=== PATIENT | male | born 1980 | race Caucasian/White ===

== ENCOUNTER → 2016-08-18 | Outpatient (CLI) | payer OTHER ==
[~2016-08-18] MED LIST: BAYEMIS; BAYETES; GABA300C5 PO; GLIP5TAB8 PO; IBUP800T23 PO; LIPI80TA PO; LISI-519 PO; METF500T PO; METH750T PO
[2016-08-18 13:07] LABS: AUTOMATED NEUTROPHIL # 6.1 TH/MM3 (1.8-7.7); BASOPHIL % 0.5 % (0.0-2.0); EOSINOPHIL # 0.1 TH/MM3 (0-0.4); EOSINOPHIL % 1.3 % (0.0-4.0); HEMATOCRIT 41.2 % (39.0-51.0); HEMO FLAGS DIFF FINAL; LYMPHOCYTE # 1.4 TH/MM3 (1.0-4.8); MEAN CELL VOLUME 89.2 FL (80.0-100.0); MEAN CORPUSCULAR HGB CONC 33.7 % (32.0-36.0); MONO % 4.7 % (0.0-8.0); NEUT % 75.5 % (16.0-70.0); PLATELET COUNT 160 TH/MM3 (150-450); RED BLOOD COUNT 4.61 MIL/MM3 (4.50-5.90); RED CELL DISTRIBUTION WIDTH 13.1 % (11.6-17.2)
[2016-08-18 13:35] LABS: ANION GAP 3 MEQ/L (5-15); BICARBONATE 31.6 MEQ/L (21.0-32.0); BLOOD UREA NITROGEN 6 MG/DL (7-18); CHLORIDE 106 MEQ/L (98-107); GLUCOSE,FASTING 149 MG/DL (74-99); POTASSIUM 4.3 MEQ/L (3.5-5.1); SODIUM (NA) 141 MEQ/L (136-145)
[2016-08-18 13:48] LABS: ALKALINE PHOSPHATASE 154 U/L (45-117); ALT (GPT) 32 U/L (12-78); AST (GOT) 21 U/L (15-37); GLOMERULAR FILTRATION RATE 86 ML/MIN (>89); HDL CHOLESTEROL 26.7 MG/DL (40.0-60.0); LDL CHOLESTEROL 37 MG/DL (0-99); TOTAL BILIRUBIN ADULT 0.7 MG/DL (0.2-1.0)
[2016-08-18 17:37] LABS: HEMOGLOBIN A1a 0.9 %; HEMOGLOBIN Ao 81.2 %; HEMOGLOBIN F 1.2 %; HEMOGLOBIN LA1C 2.3 %
== END ==
LOC: CLAB 12:35
PROVIDERS: ATTEND Family Medicine
DX: E78.5 Hyperlipidemia, unspecified (principal); R73.02 Impaired glucose tolerance (oral); I10 Essential (primary) hypertension; Z91.19 Patient's noncompliance with other medical treatment and regimen
CPT/HCPCS: 36415; 80053; 80061; 83036; 84443; 85025

== ENCOUNTER 2016-09-16 14:48 | Emergency (ER) | payer OTHER ==
[~2016-09-16] VITALS: Ht 185.4 cm; Wt 178.0 kg
[2016-09-16 14:52] VITALS: BP 143/94; PULSE 106; RESP 16; TEMP 98.8; O2SAT 95
[2016-09-16] MEDS ORDERED: RANI150T PO (15:13)
[2016-09-16] MEDS ORDERED: BENA25CA4 PO (15:13)
[2016-09-16] MEDS ORDERED: RANITIDINE HCL SYRUP 150 MG/10 ML UDC PO ONE (15:15)
[2016-09-16] MEDS ORDERED: predniSONE 20 MG TAB PO ONE (15:15)
[2016-09-16] MEDS ORDERED: diphenhydrAMINE HCL 50 MG CAP PO ONE (15:15)
--- NOTE | 2016-09-16 15:18 | PD ---
HPI Chief Complaint: Skin Problem Time Seen by Provider: 15:05 Travel History International Travel<30 days: No Contact w/Intl Traveler<30days: No Traveled to known affect area: No History of Present Illness HPI 36-year-old male presents for evaluation of a pruritic rash. He reports that one month ago he was started on several new medicationsgabapentin, metformin, glipizide, Lipitor. He has never taken these medications before. He was also restarted on lisinopril which she has taken in the past with no problem. He reports that over the past 3-4 weeks he has had widespread itching. He has noticed a widespread papular rash which seems to be worse than the back. He denies any shortness of breath, swelling lips, tongue, throat. He denies any other new medications or creams or lotions or detergents, recent travel, recent change in living environment. He has no other complaints. PFSH Past Medical History Arthritis: Yes Asthma: Yes Blood Disorders: No Anxiety: Yes Depression: No Cancer: No Cardiovascular Problems: No COPD: Yes Diabetes: No Diminished Hearing: No Endocrine: No Gastrointestinal Disorders: No Genitourinary: No Headaches: Yes Hypertension: Yes Immune Disorder: No Implanted Vascular Access Dvce: No Musculoskeletal: Yes Neurologic: Yes Psychiatric: Yes Reproductive: No Respiratory: Yes (CHRONIC BRONCHITIS AND PNEUMONIA) Immunizations Current: Yes Migraines: Yes Pneumonia: Yes Sleep Apnea: Yes Influenza Vaccination: No ?: Not Past Surgical History Other Surgery: No Social History Alcohol Use: No Tobacco Use: No Substance Use: No Allergies-Medications (Allergen,Severity, Reaction): Coded Allergies: Sulfa (Verified Allergy, Mild, RASH, 09/16/16) *MDRO Multi-Drug Resistant Organism (Unverified Adverse Reaction, Unknown , 09/16/16) MRSA Reported Meds & Prescriptions Reported Meds & Active Scripts Active Lipitor (Atorvastatin Calcium) 80 Mg Tab 80 Mg PO HS Glipizide 5 Mg Tab 5 Mg PO DAILY Take 30 minutes before a meal Dana Microlet Lancets 1 Mis Mis 1 Ea .ROUTE DIRECTED Gabapentin 300 Mg Cap 300 Mg PO TID Dana Contour Blood Glucose Strips (Blood Glucose Test Strips) Strip Strip 1 Strip .ROUTE TID Lisinopril 5 Mg Tab 5 Mg PO DAILY Metformin (Metformin HCl) 500 Mg Tab 500 Mg PO BIDPC With meals Review of Systems Except as stated in HPI: all other systems reviewed are Neg Physical Exam Narrative GENERAL: Obese male in no acute distress SKIN: Warm and dry. She has a widespread papular rash. There are no vesicles, no pustules, no wheals, no petechiae or purpura HEAD: Atraumatic. Normocephalic. EYES: Pupils equal and round. No scleral icterus. No injection or drainage. ENT: No nasal bleeding or discharge. Mucous membranes pink and moist. NECK: Trachea midline. No JVD. CARDIOVASCULAR: Regular rate and rhythm. No murmur appreciated. RESPIRATORY: No accessory muscle use. Clear to auscultation. Breath sounds equal bilaterally. GASTROINTESTINAL: Abdomen soft, non-tender, nondistended. Hepatic and splenic margins not palpable. MUSCULOSKELETAL: No obvious deformities. No clubbing. No cyanosis. No edema. NEUROLOGICAL: Awake and alert. No obvious cranial nerve deficits. Motor grossly within normal limits. Normal speech. PSYCHIATRIC: Appropriate mood and affect; insight and judgment normal. Data Data Last Documented VS Vital Signs Date Time Temp Pulse Resp B/P Pulse Ox O2 Delivery O2 Flow Rate FiO2 09/16/16 14:52 98.8 106 16 143/94 95 Orders Prednisone (Deltasone) (09/16/16 15:15) Diphenhydramine (Benadryl) (09/16/16 15:15) Ranitidine Liq (Zantac Liq) (09/16/16 15:15) [facility] Medical Decision Making Medical Screen Exam Complete: Yes Emergency Medical Condition: Yes Medical Record Reviewed: Yes Differential Diagnosis Fixed drug eruption, urticaria, medication reaction, Dakota Enoch syndrome, scabies, viral exanthem Narrative Course 36-year-old male who started on several new medications one month ago presents for evaluation of itching since that time. He recently noticed that he has a widespread papular rash. On examination he does have a widespread papular rash which certainly could be a reaction to one of his new medications. Specifically he was started on glipizide, metformin, Lipitor, gabapentin which she has never taken before. He was also restarted on lisinopril which she has taken in the past. The patient will be treated for allergic reaction with prednisone, H1 and H2 antihistamines here. It is recommended that he follow-up with his primary care physician to have his medications adjusted. It is recommended that he hold his glipizide, metformin, Lipitor and gabapentin and tell them. Given his history of diabetes I'm hesitant to give him additional doses of prednisone prescription form. He will be discharged with prescriptions for Benadryl and ranitidine. Diagnosis Primary Impression: Pruritic rash Additional Instructions: As discussed, continue taking lisinopril but discontinue all of the new medications. Take the new prescriptions as prescribed. Follow-up with your primary care physician this week for further evaluation and medication adjustment. Return for any emergent medical conditions. Med/Other Pt SpecificInfo: Prescription(s) given Scripts Ranitidine 150 Mg Eve324 Mg PO DAILY 5 Days Ref 0 Prov:Sanjuana Pena DO 09/16/16 Diphenhydramine HCl (Benadryl Allergy)25 Mg Cap1 Tab PO QID 5 Days Prov:Sanjuana Pena DO 09/16/16 Disposition: 01 DISCHARGE HOME Condition: Stable Damion [place] Sep 16, 2016 15:18
[2016-09-17] MEDS ORDERED: PRED50 PO (11:57)
== END 2016-09-16 15:52 | disposition home or self-care (01) ==
LOC: PHEFT 14:48
DX: L29.9 Pruritus, unspecified (principal); I10 Essential (primary) hypertension; Z88.2 Allergy status to sulfonamides
CPT/HCPCS: 99283; J7512; Q0163

== ENCOUNTER → 2016-11-26 | Outpatient (CLI) | payer OTHER ==
[~2016-11-26] MED LIST changes: +BENA25CA4 PO; -IBUP800T23 PO; -METH750T PO; +PRED50 PO; +RANI150T PO
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
== END ==
LOC: HRAD 09:48
DX: M79.602 Pain in left arm (principal); M54.2 Cervicalgia; M54.5 Low back pain
CPT/HCPCS: 72040; 72100; 73030; 73080; 73090